=== PATIENT | female | born 1960 | race Caucasian/White ===

== ENCOUNTER → 2023-05-08 | Outpatient (CLI) | payer OTHER, SELFPAY ==
--- NOTE | 2023-05-08 14:46 | NEURO ---
NCS and/or EMG Patient Report Ordering Doctor: Kelby Grace DATE OF SERVICE: 05/08/23 Findings: Nerve conduction studies were performed in the left upper extremity. The left median motor study recording the abductor pollicis brevis showed a normal amplitude, normal distal latency and normal conduction velocity. The left ulnar motor study recording the abductor digiti minimi showed a normal amplitude, normal distal latency and normal conduction velocity. No conduction block or focal slowing was present across the elbow. The left median sensory response recording digit two showed a normal amplitude, latency and conduction velocity. The left ulnar sensory response recording digit five showed a normal amplitude, latency and conduction velocity. The left radial sensory response recording over the extensor snuff box showed a normal amplitude, latency and conduction velocity. Left median ulnar lumbrical / interosseous motor latencies showed no significant difference. Needle EMG of the left upper extremity and cervical paraspinal muscles was performed. No denervation was seen in any muscle. All motor unit morphology, activation and recruitment patterns were normal. Impression: This is a normal study. There is no electrophysiologic evidence of cervical radiculopathy in the left upper extremity. In addition, there was no electrophysiologic evidence of median or ulnar entrapment neuropathy, or brachial plexopathy in the extremity. Please note: the electrodiagnosis of radiculopathy is made on the basis of excluding peripheral nerve lesions on nerve conduction studies and the needle EMG demonstrating denervation and/or reinnervation in the distribution of one or more nerve roots (i.e., acute and/or chronic axonal loss). Thus, electrodiagnostic studies are insensitive in detecting radiculopathy in the absence of axonal loss (e.g., in the setting of compression resulting in intermittent ischemia or mechanical deformation; or demyelination without axonal loss). Thus, clinical correlation is required in the interpretation of this negative electrodiagnostic study for radiculopathy. Riley Birmingham D.O. [employer] Codes Neurology Neurology Interp Codes: 78405-44 Musc test done w/n test comp (interp) and 44580-76 Nrv cndj test 7-8 studies (interp)
== END | disposition home or self-care (01) ==
DX: M79.602 Pain in left arm (principal)
CPT/HCPCS: 95886; 95910